=== PATIENT | male | born 1975 | race Two or more races ===

== ENCOUNTER 2017-04-29 17:52 | Emergency (ER) | payer BC, OTHER ==
[~2017-04-29] VITALS: Ht 170.2 cm; Wt 83.6 kg
[2017-04-29 18:00] VITALS: BP 161/94
[2017-04-29] MEDS ORDERED: KETOROLAC 30 MG/1 ML IM ONE (18:30)
[2017-04-29 18:49] LABS: RAPID INFLUENZA A Negative (Negative); RAPID INFLUENZA B Negative (Negative)
[2017-04-29] MEDS ORDERED: ACETAMINOPHEN 500 MG TABLET PO ONE (19:00)
[2017-04-29] MEDS ORDERED: ACETAMINOPHEN 500 MG TABLET ONE (19:22)
[2017-04-29] MEDS ORDERED: KETOROLAC 30 MG/1 ML ONE (19:22)
[2017-04-29] MEDS ORDERED: METOCLOPRAMIDE 5 MG/ML, 2ML ONE (20:21)
[2017-04-29] MEDS ORDERED: METOCLOPRAMIDE 5 MG/ML, 2ML IM ONE (20:30)
== END 2017-04-29 21:07 | disposition home or self-care (01) ==
LOC: EDBD 17:52 → ED 21:00
DX: M79.1 Myalgia (principal); R51 Headache
CPT/HCPCS: 87400; 96372; 99284; J1885; J2765